=== PATIENT | male | born 1940 | race Caucasian/White ===

== ENCOUNTER 2017-03-30 06:42 | Day surgery (SDC) | payer MEDICARE, OTHER ==
[2017-03-30] VITALS (7 sets, daily range): BP systolic 117–139; BP diastolic 81–94; PULSE 71–122; RESP 16–18; TEMP 97.6–97.8; O2SAT 95–96
[~2017-03-30] VITALS: Ht 175.3 cm; Wt 97.5 kg
[2017-03-30] MEDS ORDERED: LORazepam 1 MG TAB SL SCH (07:30)
[2017-03-30] MEDS ORDERED: POVIDONE IODINE 5% (ANTISEPSIS KIT) 4 APPLICATIONS EACH NARE PRN (07:30)
[2017-03-30] MEDS ORDERED: SODIUM CHLORID 0.9% 500 ML IV PRN (07:30)
[2017-03-30] MEDS ORDERED: METOPROLOL TARTRATE 25 MG TAB PO PRN (07:30)
[2017-03-30] MEDS ORDERED: INSULIN HUMAN REGULAR 1,000 UNITS/10 ML VIAL SQ PRN (07:30)
[2017-03-30] MEDS ORDERED: SODIUM CHLORID 0.9% 500 ML INJ 500 ML IV SCH (07:30)
[2017-03-30] MEDS ORDERED: CHLORHEXIDINE GLUCONATE 2 % 1 PACK (2 CLOTHS) TOPICAL PRN (07:30)
[2017-03-30] MEDS ORDERED: LACTATED RINGER'S 1000 ML IV PRN (07:30)
[2017-03-30 08:17] LABS: AUTOMATED NEUTROPHIL # 4.9 TH/MM3 (1.8-7.7); BASOPHIL % 0.4 % (0.0-2.0); EOSINOPHIL # 0.1 TH/MM3 (0-0.4); EOSINOPHIL % 1.8 % (0.0-4.0); HEMATOCRIT 43.8 % (39.0-51.0); HEMO FLAGS DIFF FINAL; LYMPH % 24.3 % (9.0-44.0); LYMPHOCYTE # 1.9 TH/MM3 (1.0-4.8); MEAN CELL VOLUME 97.3 FL (80.0-100.0); MEAN CORPUSCULAR HEMOGLOBIN 33.9 PG (27.0-34.0); MEAN CORPUSCULAR HGB CONC 34.9 % (32.0-36.0); MONO % 10.5 % (0.0-8.0); PLATELET COUNT 239 TH/MM3 (150-450); WHITE BLOOD COUNT 7.8 TH/MM3 (4.0-11.0)
[2017-03-30 08:26] LABS: APTT (PATIENT) 25.7 SEC (24.3-30.1); PROTHROMBIN TIME - PATIENT 10.7 SEC (9.8-11.6)
[2017-03-30 08:32] LABS: BICARBONATE 27.8 MEQ/L (21.0-32.0); POTASSIUM 3.9 MEQ/L (3.5-5.1)
[2017-03-30] MEDS ORDERED: MULT1TAB64 PO (08:39)
[2017-03-30] MEDS ORDERED: CARD180C5 PO (08:39)
[2017-03-30] MEDS ORDERED: VITA500T83 PO (08:39)
[2017-03-30] MEDS ORDERED: XARE20TA PO (08:39)
[2017-03-30] MEDS ORDERED: FINA5TAB2 PO (08:39)
[2017-03-30] MEDS ORDERED: ZINC50TA2 PO (08:39)
[2017-03-30] MEDS ORDERED: METO25TA3 PO (08:39)
[2017-03-30] MEDS ORDERED: VITA500T4 PO (08:39)
[2017-03-30] MEDS ORDERED: LOVA10TA PO (08:39)
[2017-03-30] MEDS ORDERED: LOSA50TA PO (08:39)
[2017-03-30] MEDS ORDERED: LEVOFLOXACIN 500 MG PREMIX INJ 100 ML IV ONE (09:31)
[2017-03-30] MEDS ORDERED: HEPARIN-D5W 25,000 U/250 ML 250 ML ONE (09:45)
[2017-03-30] MEDS ORDERED: ISOPROTERENOL HCL 1 MG/5 ML AMP ONE (09:46)
[2017-03-30] MEDS ORDERED: HEPARIN SODIUM - IV 10,000 UNITS/10 ML VIAL ONE (09:46)
[2017-03-30] MEDS ORDERED: PROTAMINE SULFATE 50 MG/5 ML VIAL ONE (09:46)
[2017-03-30] MEDS ORDERED: HEPARIN-NS/PF INJ 2,000 ML ONE (09:54)
[2017-03-30] MEDS ORDERED: ROCURONIUM INJ 50 MG/5 ML SYRINGE IV PUSH ONE (12:00)
[2017-03-30] MEDS ORDERED: ONDANSETRON HCL 4 MG/2 ML VIAL IV PUSH ONE (12:00)
[2017-03-30] MEDS ORDERED: PHENYLEPH/NS 1000 MCG/10 ML SYR IV ONE (12:00)
[2017-03-30] MEDS ORDERED: GLYCOPYRROLATE 1 MG/5 ML SYRINGE IV PUSH ONE (12:00)
[2017-03-30] MEDS ORDERED: LIDOCAINE HCL 1% PF 5 ML AMPULE OTHER ONE (12:00)
[2017-03-30] MEDS ORDERED: DEXAMETHASONE SOD PHOS 4 MG/ML VIAL IV ONE (12:00)
[2017-03-30] MEDS ORDERED: PROPOFOL 200 MG/20 ML AMP IV ONE (12:00)
[2017-03-30] MEDS ORDERED: FUROSEMIDE 40 MG/4 ML VIAL ONE (12:48)
[2017-03-30] MEDS ORDERED: oxyCODONE/ACETAMINOPHEN 5 MG/325 MG TAB PO PRN ×2 (13:00)
[2017-03-30] MEDS ORDERED: ATROPINE SULFATE 1 MG/ML VIAL IV PUSH PRN (13:00)
[2017-03-30] MEDS ORDERED: BACITRACIN OINT 0.9 GM PKT TOP ONE (13:00)
[2017-03-30] MEDS ORDERED: LORazepam 2 MG/ML VIAL IV PUSH PRN (13:00)
[2017-03-30] MEDS ORDERED: METOCLOPRAMIDE HCL 10 MG/2 ML VIAL IV PUSH PRN (13:00)
[2017-03-30] MEDS ORDERED: LIDOCAINE HCL 1% 50 ML VIAL INFIL PRN (13:00)
[2017-03-30] MEDS ORDERED: ONDANSETRON HCL 4 MG/2 ML VIAL IV PUSH PRN (13:00)
[2017-03-30] MEDS ORDERED: SODIUM CHLOR 0.9% 250 ML INJ 250 ML IV PRN (13:00)
--- NOTE | 2017-03-30 13:26 | CATHPROC ---
[facility] HIS Report Study Information Study Number Admission Scheduled Start Study Start [id number] Mar 30 2017 6:42AM 03/30/2017 Mar 30 2017 7:57AM [place] [facility] Electrophysiology Study Admit Source Facility Department Other [facility] - Pictures Editor Physician and Clinical Staff Initial Kyung Richardson Cabin Cleaning Supervisor Tala Meadows RCIS Other Anesthesia, SWATCH CUTTER Other Vidya Murray,RN Other Mark Salas,RT(R) Recorder Shilpi Carlos,BSRN Scrub Annie Thompson RCIS TECH2 Procedures Performed Procedure Location (Site) Vessel Name Ablation Procedure Cardioversion ICE CATHETER INSERT RA Atruim RF Ablation LT. ATRIUM LT. ATRIUM Equipment Time Explosive Ordnance Disposal Specialist Description Size Mfg Part Number Used/Scraped NEEDLE, TRANSSEPTAL NRG 98 08:56 [facility] [id number] Used C1 BIOSENSE HUTSON [id number] 09:44 CATHETER, ACUNAV FR10 ICE FR 10 Used INC. *[id number] [employer]/ EP 08:56 KIT, TRANSDUCER / AFIB [id number] Used PACER [id number] CATHETER, TACTICATH ABLAT BUNDLE 08:56 BUN[facility] Used 65 BUNDLE *[id number]- BUNDLE [id number] CATHETER, FR7 OPTIMA SPIRAL 08:56 BUND[facility] FR7 *[id number] Used BUNDLE BUNDLE [id number] 08:56 BUND[facility] CATHETER, JSN, QUAD BUNDLE FR 5 *[id number] Used BUNDLE [id number] 08:56 BUNDLE-[facility] CATHETER, JSN, QUAD BUNDLE FR 5 *[id number]- Used BUNDLE [id number] SET, COOL POINT TUBING 08:56 BUNDLE-[facility]ICK *[id number]- Used BUNDLE BUNDLE SHEATH, FR8.5 STEERABLE SM 08:56 BUNDLE-[facility]ICK 71CM [id number] Used 71CM BUNDLE COVER, TRANSDUCER CABLE 08:56 Soci Ads 612-113 Used ACUNAV 08:56 CORDIS/PACER SHEATH, FR10 MARRY 11CM FR 10 [id number] Used 08:56 CORDIS/PACER SHEATH, FR9 MARRY 11CM FR 9 [id number] Used [id number] 08:56 SETVI [employer] PACK, CCL CUSTOM * Used *[id number] 08:56 MEDLINE PACER FORREST, LIMB * 2530 *[id number] Used [id number] 08:56 Modustri MEDICAL SHEATH, FR4.5 PRELUDE 11CM FR 4.5 Used [id number] 6682-E1 12:53 Modustri MEDICAL WIRE, 3MMJ .025 * Used *[id number] 08:56 NAMIC TUBING, HIGH PRESSURE 48" 48" Used *[id number] 08:56 NAMIC TUBING, HIGH PRESSURE 48" 48" Used *[id number] 08:56 [employer] BLANKET,WARM AIR CCL * Used *[id number] CATHETER, TACTICATH ABLAT [id number] 11:39 [facility] MEDICAL Used 65 *[id number] 08:56 [facility] MEDICAL ELECTRODE KIT, ADAN X SURFACE * [id number] Used [id number] 09:55 [facility] MEDICAL SHEATH, EPS, FR6 FAST CATH FR 6 Used *[id number] 045270 08:56 [facility] MEDICAL SHEATH, EPS, FR6 FAST CATH FR 6 Used *[id number] 08:56 [facility] MEDICAL SHEATH, EPS, FR7 FAST CATH FR 7 078951 Used 849252 08:56 [facility] MEDICAL SHEATH, EPS, FR8 FAST CATH FR 8 Used *[id number] CATHETER, ACUNAV FR10 ICE [id number] 10:44 RENETTA FR 10 Used (RENETTA) *[id number] [facility] PAD, ELECTROSURGICAL 08:56 * [id number] *[id number] Used SURGICAL GROUNDING (BLUE) History: Current Medications Medication Dosage/Unit Route Frequency Last Date/Time Taken XARELTO Beta Mindi Statins (any) History: Allergies Allergy Reaction Lisinopril History: Risk Factors Hypertension Dyslipidemia Yes Yes Cerebrovascular Disease History: Symptoms/Diagnosis Selection Items ROQUE Palpitations SOB Labs Hgb (g/dl) Hct (%) RBC (MIL/MM3) WBC (l/cumm) Platelets (thousands) 11.60-17.00 35.00-51.00 4.00-5.90 4.00-11.00 150.00-450.00 15.3 43.8 4.5 7.8 239 Glucose (mg/dl) BUN (mg/dl) Creatinine (mg/dl) BUN:Creatinine (1:x) 74.00-106.00 7.00-18.00 0.50-1.30 10.00-20.00 100 10 0.8 12.5 Na (meq/l) K (meq/l) Cl (meq/l) CO2 (mmol/L) Ca (mg/dl) 136.00-145.00 3.50-5.10 98.00-107.00 21.00-32.00 8.50-10.10 140 3.9 105 27.8 8.6 INR (PTT:PT) 0.90-1.10 1 Medication Medication Total Dose (Bolus/Oral) Medication Total Dosage/Unit 1% XYLOCAINE 40 mL HEPARIN 60852 units PROTAMINE 40 mg Medications (Bolus/Oral) Medication Time Given Dosage/Unit Administered By Reason 1% XYLOCAINE 03/30/2017 10:40:05 AM 20 mL Kyung Calzada For pain 20 mL 1% XYLOCAINE given in lab by Kyung Calzada in Left Groin via Subcutaneous. Ordered by Girish Calzada. Reason: For pain. 1% XYLOCAINE 03/30/2017 10:42:12 AM 20 mL Kyung Calzada For pain 20 mL 1% XYLOCAINE given in lab by Kyung Calzada in Right Groin via Subcutaneous. Ordered by Ellie Calzada. Reason: For pain. HEPARIN 03/30/2017 10:51:23 AM 09350 units Anesthesia, SWATCH CUTTER As per physicians verbal order 72607 units HEPARIN given in lab by Anesthesia, SWATCH CUTTER in Right Forearm via Peripheral IV. Ordered by Kyung Bowser. Reason: As per physicians verbal order. HEPARIN 03/30/2017 11:05:01 AM 2000 units Anesthesia, SWATCH CUTTER As per physicians v erbal order 2000 units HEPARIN given in lab by Anesthesia, SWATCH CUTTER in Right Forearm via Peripheral IV. Ordered by Kyung Rosenberg. Reason: As per physicians verbal order. HEPARIN 03/30/2017 11:19:52 AM 2000 units Anesthesia, SWATCH CUTTER As per physicians v erbal order 2000 units HEPARIN given in lab by Anesthesia, SWATCH CUTTER in Right Forearm via Peripheral IV. Ordered by Kyung Rosenberg. Reason: As per physicians verbal order. PROTAMINE 03/30/2017 12:55:00 PM 40 mg Anesthesia, SWATCH CUTTER As per physicians ve rbal order 40 mg PROTAMINE given in lab by Anesthesia, SWATCH CUTTER in Right Forearm via Peripheral IV. Ordered by Kyung Calzada. Reason: As per physicians verbal order. Medication (Drip) Medication Time Given Dosage/Unit Concentration/Unit Diluent (ml) Solution HEPARIN DRIP 03/30/2017 11:05:58 AM 100 units/hr 04862 units 250 D5W 100 units/hr HEPARIN DRIP given in lab by Anesthesia, SWATCH CUTTER via Peripheral IV. Pump/Drip Flow = 1 ml/h r [place] [address] units in 250 ml. Ordered by Kyung Calzada. Reason: As per physicians verbal order. ISUPREL 03/30/2017 12:35:19 PM 10 mcg/min 1 mg 250 NaCl .9 10 mcg/min ISUPREL given in lab by Anesthesia, SWATCH CUTTER in Right Forearm via Peripheral IV. Pump/Drip Geraldo w = 150 ml/hr using NaCl .9 with a concentration of 1 mg in 250 ml. Ordered by Kyung Calzada. Reason: As per physicians verbal order. IV Solutions 03/30/2017 9:32:55 AM 0 mL (IV) NaCl .9 IV Solutions given in lab by Shilpi Carlos BSRN in Left Forearm via Peripheral IV. Pump/Drip Flow = 50 ml/hr using NaCl .9. Ordered by Kyung Calzada. Reason: As per physicians verbal order. IV Solutions 03/30/2017 9:33:24 AM 0 mL (IV) NaCl .9 IV Solutions given in lab by Shilpi Carlos BSRN in Right Forearm via Peripheral IV. Pump/Drip Geraldo w = 50 ml/hr using NaCl .9. Ordered by Kyung Calzada. Reason: As per physicians verbal order. LEVAQUIN 03/30/2017 10:10:00 AM 100 mL/hr 500 100 NaCl .9 100 mL/hr LEVAQUIN given in lab by Anesthesia, SWATCH CUTTER in Right Forearm via Peripheral IV. Pump/Drip Geraldo w = 0 ml/hr using NaCl .9 with a concentration of 500 in 100 ml. Ordered by Kyung Calzada. Reason: As per physicians verbal order. Initial Case Assessment Cardiovascular HR NIBP 92 133/95 Edema Present Skin color Skin None Normal Warm Dry Neurological State Oriented to time-place- Alert Moves all extremities person Respiration - General Respiration Rate SpO2 (%) (B/min) 20 96 Final Case Assessment Cardiovascular HR NIBP 99 110/56 Edema Present Skin color Skin None Normal Warm Dry Neurological State Oriented to time-place- Alert Moves all extremities person Respiration - General Respiration Rate SpO2 (%) (B/min) 20 96 Chronological Log Time Study Chronological Log 9:10:53 Patient arrived via Bed. 9:10:55 Patient Name, D.O.B, / Armband Verified By R.N. 9:10:57 Consent signed by the physician and the patient and verified by the Pictures Editor staff. 9:10:59 Pre-op and post- op instructions given; patient acknowledges understanding of instructions. 9:11:03 Verbal Stimulation=2 Physical Stimulation=2 Airway=2 Respiration=2 TOTAL=10. (0=absent, 1=l imited, 2=present) 9:26:50 Presedation assessment performed by Pictures Editor RN. 9:26:54 Immediate Presedation assesment performed by physician. 9:26:56 Patient has been NPO for More than 6Hrs. 9:26:59 Skin Breakdown- none 9:27:07 Patient Warmer Placed on the Table. 9:27:09 Disposable Defibrillator Pads Placed On Patient. 9:27:13 Ayleen Prominences Protected Assessment: Initial Case, HR=92 BPM, QYZQ=982/95 mmhg, Edema=None, Color=Normal, Skin = Warm, D ry 9:27:14 Neurological: State=Alert, Ox3, BROOKE Respiration: Resp=20 B/min, SpO2=96 % 9:27:40 Table restraints applied according to hospital policy 9:27:45 History and physical on the chart or being dictated. 9:27:48 A # 20 IV was noted in the Forearm (left). Grade = ~GRADE~ 9:32:44 A # 20 IV was noted in the Forearm (right). Grade = ~GRADE~ IV Solutions given in lab by Shilpi Carlos BSRN in Left Forearm via Peripheral IV. Pump/Dri p Flow = 50 ml/hr using 9:32:55 NaCl .9. Ordered by Kyung Calzada. Reason: As per physicians verbal order. IV Solutions given in lab by Shilpi Carlos BSRN in Right Forearm via Peripheral IV. Pump/Dr ip Flow = 50 ml/hr 9:33:24 using NaCl .9. Ordered by Kyung Calzada. Reason: As per physicians verbal order. 9:33:49 Right groin prepped with 2% chlorhexidine, and draped after a 3 min. waiting time. 9:33:52 Left groin prepped with 2% chlorhexidine, and draped after a 3 min. waiting time. 9:38:40 Anesthesia at bedside. Assumes care of patient. Arnulfo PERRY 10:01:21 Indwelling uretheral catheter inserted by Colt CORMIER. Clear yellow urine noted. 100 mL/hr LEVAQUIN given in lab by Anesthesia, SWATCH CUTTER in Right Forearm via Peripheral IV. Pump/Dr ip Flow = 0 ml/hr 10:10:00 using NaCl .9 with a concentration of 500 in 100 ml. Ordered by Kyung Calzada. Reason: As p er physicians verbal order. 10:10:15 Reference ECG taken 10:15:00 MD notified ready for access/ECHO issue. 10:28:51 MD arrived. Time Out. Correct patient, procedure, procedure equipment, site and side verified with physicia n present. Time 10:33:09 concurred by MD, individual staff and SWATCH CUTTER. Time Out #2 - Consents verified, patient in correct position, all results are labled and displa yed, safety precautions 10:33:36 taken, antibiotics administered. Time out concurred by MD, individual staff and SWATCH CUTTER in procedu re 10:33:50 Case Start 10:34:16 MALGORZATA begun at bedside by Dr. Calzada. 10:39:55 MALGORZATA completed. 20 mL 1% XYLOCAINE given in lab by Kyung Calzada in Left Groin via Subcutaneous. Ordered by Kyung Barreto. 10:40:05 Reason: For pain. 10:40:29 Vascular access was obtained in the Fem Art (left). 10:40:49 Vascular access was obtained in the Fem Vein (left). 10:40:51 Vascular access was obtained in the Fem Vein (left). 10:40:52 Vascular access was obtained in the Fem Vein (left). 10:41:02 A SHEATH, EPS, FR6 FAST CATH FR 6 was advanced into the Fem Vein (left) using the Percutane ous technique. 10:41:17 A SHEATH, EPS, FR7 FAST CATH FR 7 was advanced into the Fem Vein (left) using the Percutane ous technique. 10:41:29 A SHEATH, FR10 MARRY 11CM FR 10 was advanced into the Fem Vein (left) using the Percutaneo us technique. 10:41:46 A SHEATH, FR4.5 PRELUDE 11CM FR 4.5 was advanced into the Fem Art (left) using the Percutan eous technique. 20 mL 1% XYLOCAINE given in lab by Kyung Calzada in Right Groin via Subcutaneous. Ordered by Kyung Rosenberg. 10:42:12 Reason: For pain. 10:42:23 Vascular access was obtained in the Fem Vein (right). 10:42:26 A SHEATH, EPS, FR8 FAST CATH FR 8 was advanced into the Fem Vein (right) using the Percutan eous technique. A CATHETER, JSN, QUAD BUNDLE FR 5 was advanced vis Fem Vein (left) and placed in the CS. Placem ent was visually 10:42:44 confirmed under fluoroscopy. A CATHETER, JSN, QUAD BUNDLE FR 5 was advanced vis Fem Vein (left) and placed in the HIS. Place ment was 10:42:58 visually confirmed under fluoroscopy. 10:43:41 CATHETER, ACUNAV FR10 ICE (Ztail) FR 10 Was Postioned. A SHEATH, FR8.5 STEERABLE SM 71CM BUNDLE 71CM was exchanged in the Fem Vein (right). This was n ecessary in 10:44:01 order for catheter support. 10:44:28 Haddock needle inserted. 10:44:44 Transseptal. 10:44:53 Haddock needle removed. 99292 units HEPARIN given in lab by Anesthesia, SWATCH CUTTER in Right Forearm via Peripheral IV. Ordere d by Kyung Calzada. 10:51:23 Reason: As per physicians verbal order. 10:59:49 Activated Clotting Time Drawn A CATHETER, FR7 OPTIMA SPIRAL BUNDLE FR7 was advanced vis Fem Vein (right) and placed in the LA . Placement 11:00:00 was visually confirmed under fluoroscopy. 11:03:28 Mapping in progress. 11:04:11 ACT (Normal Range 90-180) = 336 2000 units HEPARIN given in lab by Anesthesia, SWATCH CUTTER in Right Forearm via Peripheral IV. Ordered by Kyung Calzada. 11:05:01 Reason: As per physicians verbal order. 100 units/hr HEPARIN DRIP given in lab by Anesthesia, SWATCH CUTTER via Peripheral IV. Pump/Drip Flow = 1 ml/hr using D5W 11:05:58 [place] [address] units in 250 ml. Ordered by Kyung Calzada. Reason: As per physici ans verbal order. 11:10:00 Mapping complete. 11:14:26 Activated Clotting Time Drawn 11:14:32 [place] catheter removed. A CATHETER, TACTICATH ABLAT 65 BUNDLE was advanced vis Fem Vein (right) and placed in the LA. P lacement was 11:14:44 visually confirmed under fluoroscopy. 11:15:16 Ablation in progress. 11:19:36 ACT (Normal Range 90-180) = 341 2000 units HEPARIN given in lab by Anesthesia, SWATCH CUTTER in Right Forearm via Peripheral IV. Ordered by Kyung Calzada. 11:19:52 Reason: As per physicians verbal order. 11:30:00 Activated Clotting Time Drawn 11:36:48 ACT (Normal Range 90-180) = 349 12:06:16 Activated Clotting Time Drawn 12:14:00 ACT (Normal Range 90-180) = 384 12:14:46 ECG rhythm of AF noted. Patient cardioverted at 200 joules. Success synch 12:15:11 ECG rhythm of AF noted. Patient cardioverted at 300 joules. Success synch 12:17:47 RF Ablation of the LT. ATRIUM with a CATHETER, TACTICATH ABLAT 65. 12:34:05 ECG rhythm of AF noted. Patient cardioverted at 360 joules. Success synch 10 mcg/min ISUPREL given in lab by Anesthesia, SWATCH CUTTER in Right Forearm via Peripheral IV. Pump/Dr ip Flow = 150 ml/hr 12:35:19 using NaCl .9 with a concentration of 1 mg in 250 ml. Ordered by Kyung Calzada. Reason: As per physicians verbal order. 12:35:45 Ablation procedure performed: AFIB. 12:35:53 EP Procedure was performed. 12:48:36 Isuprel gtt turned off. A SHEATH, FR9 MARRY 11CM FR 9 was exchanged in the Fem Vein (right). This was necessary in ord er to achieve 12:49:10 vascular hemostasis. 12:49:[address] Calzada. 12:50:24 PACU called. Spoke to Aury Assessment: Final Case, HR=99 BPM, GEWK=694/56 mmhg, Edema=None, Color=Normal, Skin = Warm, Dry 12:50:41 Neurological: State=Alert, Ox3, BROOKE Respiration: Resp=20 B/min, SpO2=96 % 12:52:54 Sheath(s) left in place, will be removed in Holding Area 12:52:58 Sterile dressing applied to site 12:53:04 Cine recording checked. 12:53:06 No case complications noted. 12:53:15 Bedside Report will be given. 12:53:23 Defibrillator and ground pads removed. Skin intact. 40 mg PROTAMINE given in lab by Anesthesia, SWATCH CUTTER in Right Forearm via Peripheral IV. Ordered Kyung Mcguire. 12:55:00 Reason: As per physicians verbal order. 13:02:12 Activated Clotting Time Drawn 13:05:42 ACT (Normal Range 90-180) = 133 13:06:01 Case End 13:20:00 Patient moved to bed and transported to PACU in stable condition. 13:29:22 Patient arrived in PACU, nurse checked pulses and access sites. 13:40:37 4Fr sheath in LFA pulled in PACU by Evon Thompson, manual pressure held for 20 min. 13:45:18 6FR sheath in LFV pulled in PACU by Evon Thompson, manual pressure held 13:48:23 7FR sheath in LFV pulled in PACU by Evon Thompson, manual pressure held 13:50:23 10FR sheath in LFV pulled in PACU by Evon Thompson, manual pessure held for 10 min. 14:00:14 Hemostasis obtained at the LFA and LFV sites. Sterile dressing applied. 14:07:17 9FR sheath in RFV pulled in PACU by Evon Thompson, manual pressure held for 10 min. 14:18:52 Hemostasis obtained, site dressed with sterile dressing. 14:35:39 PACU nurse checked site, pedal pulses and vital signs documented in PACU by PACU nurse. End Study - Contrast Media Used In Study Contrast Total Opened (mL) Total Used (mL) Total Wasted (mL) Unspecified 0 0 0 End Study - Maximum Contrast Load Max Contrast Load (mL) 603.1 End Study - Radiation Exposure Fluoro Time (minutes) 2.2 End Study - Patient Disposition Complications Transferred To Interventional Outcome No Telemetry Bed successful
[2017-03-30] MEDS ORDERED: DO NOT ADM ANY ANTICOAGULANT DRUGS PRN (13:28)
[2017-03-30] MEDS ORDERED: RIVAROXABAN 20 MG TAB PO SCH (18:00)
[2017-03-30] MEDS: FINASTERIDE 5 MG TAB PO SCH (18:29)
--- NOTE | 2017-03-30 19:20 | EKG ---
Date Performed: 03/30/2017 Time Performed: 08:20:44 PTAGE: 76 years EKG: Atrial fibrillation with rapid ventricular response. Leftward axis Inferior and ant/septal T wave changes are nonspecific Low QRS voltages in precordial leads Abnormal ECG NO PREVIOUS TRACING DOCTOR: Abhay Jackman Interpretating Date/Time 03/30/2017 19:18:39
[2017-03-30] MEDS: METOPROLOL TARTRATE 25 MG TAB PO SCH (21:54)
[2017-03-31] VITALS (14 sets, daily range): BP systolic 126–134; BP diastolic 83–90; PULSE 72–130; RESP 15–18; TEMP 97.5–98; O2SAT 94–95
[2017-03-31 07:04] LABS: INTERNATIONAL NORMALIZED RATIO 1.3 RATIO; PROTHROMBIN TIME - PATIENT 14.7 SEC (9.8-11.6)
--- NOTE | 2017-03-31 08:18 | EKG ---
Date Performed: 03/30/2017 Time Performed: 13:47:11 PTAGE: 76 years EKG: Sinus rhythm BORDERLINE LEFT AXIS DEVIATION MODERATE ST DEPRESSION ABNORMAL ECG PREVIOUS TRACING : 03/30/2017 08.20 Compared to prior EKG, patient is no longer in atrial fibri llation. DOCTOR: Kelly aRnd Interpretating Date/Time 03/31/2017 08:15:33
[2017-03-31] MEDS ORDERED: PRAVASTATIN SOD 10 MG TAB PO SCH (09:00)
[2017-03-31] MEDS ORDERED: CYANOCOBALAMIN 1,000 MCG TAB PO SCH (09:00)
[2017-03-31] MEDS ORDERED: ASCORBIC ACID 1000 MG PO SCH (09:00)
[2017-03-31] MEDS ORDERED: PATIENT OWN MEDICATION: ZINC GLUCONATE 50MG TABLET PO SCH (09:00)
[2017-03-31] MEDS: FINASTERIDE 5 MG TAB PO SCH (09:00)
[2017-03-31] MEDS ORDERED: DILTIAZEM-CD 180 MG CAP ER PO SCH (09:00)
[2017-03-31] MEDS ORDERED: LOSARTAN 50 MG TAB PO SCH (09:00)
[2017-03-31] MEDS: METOPROLOL TARTRATE 25 MG TAB PO SCH (10:05)
--- NOTE | 2017-03-31 12:06 | PD.CARD ---
Atrial Fibrillation Ablation PROCEDURE DATE: Mar 31, 2017 PROCEDURES PERFORMED: 1. Electrophysiology study on Isuprel infusion 2. CS cannulation 3. 3-D mapping 4. Transseptal approach 5. Right and left heart catheterization 6. Intracardiac echo 7. Radiofrequency ablation of atrial fibrillation 8. Pulmonary vein isolation 9. Posterior wall ablation 10. Mitral valve isolation 11. Mitral line creation 12. Left atrial tachycardia ablation 13. Roof line creation 14. Floor line creation 15. Anterior and posterior ablation 16. Cardioversion INDICATIONS FOR THE PROCEDURE Mr. Arthur is a 76-year-old male with atrial fibrillation, very symptomatic, on anticoagulation, admits for electrophysiology study and ablation. The risks, the nature and the benefits of the procedure were clearly stated to him. The risks include pneumothorax, cardiac perforation, stroke, need for open heart surgery and even . The patient understood and agreed to proceed. DESCRIPTION OF THE PROCEDURE IN DETAIL After written informed consent was obtained prior to esophageal echocardiogram, the patient was kept on the table where he was prepped and draped in the usual sterile fashion. Conscious sedation was initiated and maintained throughout the procedure by the anesthesiologist. Once sedation was verified, the right and left inguinal areas were anesthetized with 2% Xylocaine. Using modified Seldinger technique, the left femoral vein was cannulated on three occasions, three guidewires were advanced. Over the wire a 6, 7 and a 10-Brazilian Hemaquet were advanced. Then the left femoral artery was cannulated on one occasion, one guidewire was advanced. Over the wire a 4-Brazilian Hemaquet was advanced. Then the right femoral vein was cannulated on one occasion, one guidewire was advanced. Over the wire a 8-Brazilian Hemaquet was advanced. Then under fluoroscopic guidance through the 6 and 7-Brazilian Hemaquet, two 5-Brazilian Geni curved quadripolar electrophysiology catheters were advanced and placed around the His as well as coronary sinus. Basic interval was measured. The patient was in atrial fibrillation. Through the 10-Brazilian Hemaquet, a [email or web address] Pimentel AcuNav intracardiac echo catheter was advanced and placed at the right atrium. Multiple view was obtained. There was no pericardial effusion, pulmonary vein was seen, atrial septal was visualized. Then the 8-Brazilian Hemaquet in the right femoral vein was exchanged for Agilis transseptal sheath that was placed all the way to the superior vena cava. Through the sheath a Cristobal needle was advanced, then the sheath, the dilator and the needle were progressed until foci engaged. Once engaged, the needle was advanced. RF was delivered for 2 seconds. I was able to cross into the left atrium. Once the needle crossed, the dilator was advanced. Once the dilator crossed, the sheath was advanced. Once the sheath crossed, the dilator and the needle were removed. At this point I did flood the system and fluid movement was seen in the left atrium the indicates the sheath is in good position. The patient already received 10,000 units of heparin. The goal is to keep an ACT around 350 during ablation. Then through the sheath a St. Jignesh 20 pulse circumferential catheter was advanced. Using PodPoster endocardial solution mapping system, a two-dimensional configuration of the left atrium was obtained. Points were taken at the left superior and inferior veins, right superior and inferior veins, mitral valve, and appendages. Then through the sheath a St. Jignesh TactiCath 65cm 3.5mm irrigated tipped mapping and radiofrequency ablation catheter was advanced. Esophageal probe was placed temperature monitoring during ablation. When it increased to 0.5 degrees Celsius above baseline, I moved to a different area of the atrium. First I did isolate the left superior and inferior vein. I did make a koi around the veins. Posterior was ablated. Then a roof line was created, a floor line was created, a mitral line was isolated, then the mitral valve was isolated. At that point the patient was in left atrial tachycardia. lateral wall was ablated. I did create a line from the floor to the roof area, passing by the left atrial appendage. Then the right superior and inferior veins were isolated. I did remap the atrium. There is no significant signal in the atrium. At this point I decided to proceed with cardioversion. A 200 sync biphasic joule was delivered that fail to convert the patient into sinus rhythm. Patient was ion atrial tachycardia. Further ablation was made around the mitral valve and the septum. Early activation was observed around the lateral wall. CL was over 380ms. After more ablative energy was delivered, I decide to proceed with cardioversion. A 200 sync biphasic joules was delivered that converted the patient into sinus rhythm. At that point I did advance the circumferential catheter again into the vein. There was no signal into the vein, pacing from the vein showed no conduction to the atrium. No tachyarrhythmia was induced, post Isuprel no tachyarrhythmia was induced. At that point the procedure was complete. All catheters were removed, atrial septal sheath was exchanged for 9-Brazilian Hemaquet, intracardiac echo showed no pericardial effusion. There is still good flow in the pulmonary vein. The patient is going to be transferred to the recovery room. No incident report. The patient tolerated the procedure. Blood loss was minimal. FINDINGS 1. Electrocardiogram: At baseline the patient was in atrial fibrillation, post procedure the patient was in sinus rhythm. 2. Basic interval: Base cycle length was around 580ms. Post ablation she was around 1100 milliseconds. AH at 90 and HV at 52 milliseconds. 3. Tachyarrhythmia: Atrial fibrillation was mapped and ablated. Atrial tachycardia was ablated. The ablation was successful. CONCLUSION Successful electrophysiology study, mapping, radiofrequency ablation of atrial fibrillation, left atrial tachycardia, pulmonary vein isolation, posterior ablation, mitral valve isolation, mitral line creation, roof line creation, floor line creation, left atrial tachycardia, and cardioversion. COMMENTS AND RECOMMENDATIONS The patient is going to be transferred to the telemetry unit. Will be observed and when stable can be discharged home. Kyung Calzada MD Mar 31, 2017 12:06
--- NOTE | 2017-03-31 12:16 | HHI.PR ---
Subjective Remarks Feeling better Objective Vital Signs Date Time Temp Pulse Resp B/P (MAP) Pulse Ox O2 Delivery O2 Flow Rate FiO2 03/31/17 11:21 120 03/31/17 11:14 97.7 130 16 129/90 (103) 94 03/31/17 10:05 87 03/31/17 09:06 85 03/31/17 08:00 80 03/31/17 07:00 98.0 84 15 134/87 (103) 95 03/31/17 07:00 88 03/31/17 06:03 76 03/31/17 05:00 74 03/31/17 04:00 72 03/31/17 03:00 76 03/31/17 03:00 97.5 78 18 126/83 (97) 95 03/31/17 02:00 76 03/31/17 01:00 74 03/31/17 00:00 76 03/30/17 23:00 97.6 71 16 117/81 (93) 96 03/30/17 23:00 76 03/30/17 22:00 90 03/30/17 21:00 86 03/30/17 20:00 92 03/30/17 19:00 97.8 83 18 126/87 (100) 96 03/30/17 19:00 100 03/30/17 18:22 94 03/30/17 18:22 91 18 132/94 (107) 95 03/30/17 17:55 97.7 93 16 141/84 (103) 95 Nasal Cannula 2 03/30/17 17:00 90 16 130/85 (100) 96 Nasal Cannula 2 03/30/17 16:00 89 13 123/85 (98) 95 Nasal Cannula 2 03/30/17 15:30 87 13 119/81 (94) 96 Nasal Cannula 2 03/30/17 15:00 86 12 123/80 (94) 94 Nasal Cannula 3 03/30/17 14:45 86 15 123/80 (94) 94 Nasal Cannula 3 03/30/17 14:30 85 14 124/81 (95) 94 Nasal Cannula 3 03/30/17 14:15 86 16 125/80 (95) 95 Nasal Cannula 3 03/30/17 14:10 91 19 122/88 (99) 93 Nasal Cannula 3 03/30/17 14:05 84 13 125/77 (93) 94 Nasal Cannula 3 03/30/17 14:00 85 16 123/81 (95) 94 Nasal Cannula 3 03/30/17 13:55 86 13 129/81 (97) 95 Nasal Cannula 3 03/30/17 13:50 85 15 123/85 (98) 93 Nasal Cannula 3 03/30/17 13:45 86 16 126/78 (94) 93 Nasal Cannula 3 03/30/17 13:40 86 16 125/90 (102) 93 Nasal Cannula 3 03/30/17 13:35 83 13 121/83 (96) 94 Nasal Cannula 3 03/30/17 13:30 83 16 122/83 (96) 94 Nasal Cannula 3 03/30/17 13:29 97.5 83 12 124/80 (95) 97 Nasal Cannula 3 I/O 03/30/17 03/30/17 03/30/17 03/31/17 03/31/17 03/31/17 07:00 15:00 23:00 07:00 15:00 23:00 Intake Total 340 ml 480 ml Output Total 2175 ml 250 ml Balance -1835 ml 230 ml Intake Oral 340 ml 480 ml IV Total 0 ml Output Urine Total 2175 ml 250 ml Result Diagram: 03/30/17 0759 03/30/17 0759 Imaging Alert, fully oriented Lungs: ventilated Heart: S1, S2 regular, no gallop Abdomen: soft, no mass Ext: no edema, no hematoma Current Medications Medications (Trade) Dose Ordered Sig/Chip Route Start Time Stop Time Status Last Admin Lactated Ringer's 1,000 ml @ 30 mls/hr Q24H PRN IV 03/30/17 07:30 04/02/17 07:29 Sodium Chloride 500 ml @ 30 mls/hr [id number] PRN IV 03/30/17 07:30 04/02/17 07:29 (Lopressor) 25 mg [employer] PRN PO 03/30/17 07:30 04/02/17 07:29 (Betadine 5% Antisepsis Kit) 1 applic [employer] PRN EACH NARE 03/30/17 07:30 04/02/17 07:29 (Chlorhexidine 2% Cloth) 3 pack [employer] PRN TOPICAL 03/30/17 07:30 04/02/17 07:29 (NovoLIN R INJ) See Protocol Table ... [employer] PRN SQ 03/30/17 07:30 04/02/17 07:29 Sodium Chloride 500 ml @ 30 mls/hr [id number] IV 03/30/17 07:30 (Ativan) 1 mg [employer] SL 03/30/17 07:30 04/02/17 07:29 (Percocet 5-325 Mg) 1 tab Q4H PRN PO 03/30/17 13:00 (Percocet 5-325 Mg) 2 tab Q4H PRN PO 03/30/17 13:00 (Ativan Inj) 0.5 mg UNSCH PRN IV PUSH 03/30/17 13:00 03/31/17 12:59 (Atropine Inj) 0.5 mg UNSCH PRN IV PUSH 03/30/17 13:00 Sodium Chloride 250 ml @ 500 mls/hr ONCE PRN IV 03/30/17 13:00 03/31/17 12:59 (Reglan Inj) 10 mg Q4H PRN IV PUSH 03/30/17 13:00 (Zofran Inj) 4 mg Q4H PRN IV PUSH 03/30/17 13:00 (Xylocaine 1% Inj (50 ml)) 10 ml UNSCH PRN INFIL 03/30/17 13:00 03/31/17 12:59 (Vitamin B12) 500 mcg DAILY PO 03/31/17 09:00 03/31/17 10:05 (Cardizem Cd) 180 mg DAILY PO 03/31/17 09:00 03/31/17 10:04 (Proscar) 5 mg DAILY PO 03/30/17 18:00 03/30/17 18:29 (Cozaar) 50 mg DAILY PO 03/31/17 09:00 03/31/17 10:05 (Pravachol) 10 mg DAILY PO 03/31/17 09:00 03/31/17 10:05 (Lopressor) 25 mg BID PO 03/30/17 21:00 03/31/17 10:05 (Xarelto) 20 mg Q24H PO 03/30/17 18:00 03/30/17 18:28 Patient Own Medication PT OWN MED: ASCOR... DAILY PO 03/31/17 09:00 Future Hold Patient Own Medication PT OWN MED: ZINC GLUCON... DAILY PO 03/31/17 09:00 Future Hold Miscellaneous Information ALL NURSING DEPARTME... UNSCH PRN .XX 03/30/17 13:28 03/31/17 13:27 Assessment and Plan Problem List: (1) Atrial fibrillation ICD Codes: I48.91 - Unspecified atrial fibrillation Plan: SP atrial fibrillation In sinus rhythm Can be DH Follow up as previously scheduled (2) Palpitations ICD Codes: R00.2 - Palpitations Plan: No new episode reported (3) Shortness of breath ICD Codes: R06.02 - Shortness of breath Plan: Improving Feeling better Kyung Calzada MD Mar 31, 2017 12:15
[2017-03-31] MEDS ORDERED: AMIO200T PO (12:19)
[2017-03-31] MEDS ORDERED: AMIO400T PO (12:19)
--- NOTE | 2017-03-31 16:38 | EKG ---
Date Performed: 03/31/2017 Time Performed: 06:20:40 PTAGE: 76 years EKG: --- Warning: Data quality may affect interpretation --- Sinus rhythm Possible anterior infarct - age undetermined Abnormal ECG NO PREVIOUS TRACING DOCTOR: Kelly Rand Interpretating Date/Time 03/31/2017 16:34:12
== END 2017-03-31 13:27 | disposition home or self-care (01) ==
LOC: HDOC 06:42 → HDIC 08:05 → HCIS 18:10 → HDOC 03-31 13:27
PROVIDERS: ATTEND Internal Medicine Interventional Cardiology
DX: I48.91 Unspecified atrial fibrillation (principal); I47.1 Supraventricular tachycardia; R00.2 Palpitations; R94.31 Abnormal electrocardiogram [ECG] [EKG]; I10 Essential (primary) hypertension; E78.5 Hyperlipidemia, unspecified; E66.9 Obesity, unspecified; Z86.73 Personal history of transient ischemic attack (TIA), and cerebral infarction without residual deficits; Z79.899 Other long term (current) drug therapy
CPT/HCPCS: 80048; 85002; 85025; 85610; 85730; 86850; 86900; 86901; 92960; 93005; 93312; 93320; 93325; 93613; 93623; 93656; 93662; C1730; C1731; C1732; C1759; C1766; C2630; J1100; J1644; J1940; J1956; J2370; J2405; J2720; J3010